=== PATIENT | male | born 1970 | race Caucasian/White ===

== ENCOUNTER 2018-04-29 15:15 | Emergency (ER) | payer OTHER ==
[~2018-04-29] VITALS: Ht 170.2 cm; Wt 65.8 kg
[2018-04-29] MEDS ORDERED: LOSARTAN POTASS50 MG PO (15:27)
== END 2018-04-29 17:28 | disposition home or self-care (01) ==
LOC: ER 15:15
DX: S81.811A Laceration without foreign body, right lower leg, initial encounter (principal); W45.8XXA Other foreign body or object entering through skin, initial encounter; Y93.89 Activity, other specified; Y92.89 Other specified places as the place of occurrence of the external cause; Y99.8 Other external cause status

== ENCOUNTER 2023-10-25 12:12 | Outpatient (CLI) | payer OTHER ==
[~2023-10-25 12:12] MED LIST: LOSARTAN POTASS50 MG PO
== END 2023-10-25 12:25 | disposition home or self-care (01) ==
LOC: RAD 12:12
PROVIDERS: ATTEND Physical Medicine & Rehabilitation
DX: M54.2 Cervicalgia (principal)